=== PATIENT | female | born 1935 | race Caucasian/White ===

== ENCOUNTER 2018-11-27 11:14 | Inpatient (IN) | payer MEDICARE, OTHER ==
[~2018-11-27] VITALS: Ht 147.3 cm; Wt 44.5 kg
[~2018-11-27 11:14] MED LIST: ACET500 PO; ALBIPROI INH; AMLO5 PO; CEFU250; CEPH500 PO; CIPR250 PO; ESOM20 PO; FLUSAL2505 IH; HYDSUL200 PO; LEVFLO500 PO; LOSARTAN POTAS100 MG PO; MULVITA; OLME20 PO; OMEP20ER; PROACE100 PO; RXPROACE PO; Sudogest30 MG; TRIHYD253B; TRIHYD253B PO
[2018-11-27 11:54] LABS: Source, Urine Clean Catch
[2018-11-27 12:02] LABS: BASOPHILS ABSOLUTE AUTO 0.01 K/mm3 (0.00-0.23); BASOPHILS PERCENT AUTO 0 % (0-2); EOSINOPHILS ABSOLUTE AUTO 0.03 K/mm3 (0.00-0.68); EOSINOPHILS PERCENT AUTO 1 % (0-6); Hematocrit 20.9 % (33.0-51.0); Hemoglobin 6.8 g/dL (11.5-16.0); IMMATURE GRAN ABSOLUTE AUTO 0.03 K/mm3 (0.00-0.10); IMMATURE GRAN PERCENT AUTO 1 % (0-1); LYMPHOCYTES ABSOLUTE AUTO 0.45 K/mm3 (0.84-5.20); LYMPHOCYTES PERCENT AUTO 14 % (21-46); MONOCYTES ABSOLUTE AUTO 0.34 K/mm3 (0.16-1.47); MONOCYTES PERCENT AUTO 10 % (4-13); Mean Corpuscular HGB 30.6 pg (26.0-34.0); Mean Corpuscular HGB Conc 32.5 g/dL (31.5-36.5); Mean Corpuscular Volume 94 fL (80-100); Mean Platelet Volume 9.5 fL (9.1-12.4); NEUTROPHILS ABSOLUTE AUTO 2.41 K/mm3 (1.96-9.15); NEUTROPHILS PERCENT AUTO 74 % (41-73); Platelet Count 146 K/mm3 (150-400); RDW Coefficient Variation 13.8 % (11.7-14.2); RDW Standard Deviation 47.7 fL (35.1-46.3); Red Blood Cell Count 2.22 M/mm3 (3.80-5.20); White Blood Cell Count 3.27 K/mm3 (4.00-11.30)
[2018-11-27 12:03] LABS: Appearance, Urine Hazy (Clear); Bilirubin, Urine Neg (Neg); Blood, Urine 2+ (Neg); Color, Urine Yellow (P-Yellow); Glucose Qualitative, Urine Neg (Neg); Ketones, Urine Neg (Neg); Leukocyte Esterase, Urine 2+ (Neg); Nitrite, Urine Neg (Neg); Protein, Urine 3+ (Neg); Urobilinogen, Urine NORM (Normal)
[2018-11-27 12:32] LABS: Albumin, Blood 3.3 g/dL (3.4-5.0); Albumin/Globulin Ratio 1.1 (0.8-1.8); Bilirubin, Total 0.9 mg/dL (0.1-1.0); Bun/Creatinine Ratio 22.9 (12.0-20.0); Calcium, Blood 8.5 mg/dL (8.5-10.1); Creatinine, Blood 2.05 mg/dL (0.40-1.00); Globulin, Blood 2.9 g/dL (2.2-4.0); Potassium, Blood 4.3 mmol/L (3.5-5.5); Total Protein, Blood 6.2 g/dL (6.4-8.2)
[2018-11-27 13:40] LABS: Adenovirus F 40/41 Not Detected (NOT DETECT); Astrovirus Not Detected (NOT DETECT); Campylobacter Sp Not Detected (NOT DETECT); Cryptosporidium Not Detected (NOT DETECT); Cyclospora Cayetanensis Not Detected (NOT DETECT); E. Coli O157 Not Detected (NOT DETECT); Entamoeba Histolytica Not Detected (NOT DETECT); Enteroaggregative E. coli-EAEC Not Detected (NOT DETECT); Enteropathogenic E. coli-EPEC Not Detected (NOT DETECT); Enterotoxigenic E. coli-ETEC Not Detected (NOT DETECT); Giardia Lamblia Not Detected (NOT DETECT); Norovirus GI/GII Not Detected (NOT DETECT); Plesiomonas Shigelloides Not Detected (NOT DETECT); Rotavirus A Not Detected (NOT DETECT); Salmonella Sp Not Detected (NOT DETECT); Sapovirus Not Detected (NOT DETECT); Shiga Toxin-prod E. coli-STEC Not Detected (NOT DETECT); Shigella/Enteroin E. coli-EIEC Not Detected (NOT DETECT); Vibrio Cholerae Not Detected (NOT DETECT); Vibrio Sp Not Detected (NOT DETECT); Yersinia Enterocolitica Not Detected (NOT DETECT)
[2018-11-27] MEDS ORDERED: TRELEGY ELLIPT1 EACH PO (14:02)
[2018-11-27 14:03] LABS: Source, Urine Catheter
[2018-11-27] MEDS ORDERED: FURO20 PO (14:03)
[2018-11-27 14:09] LABS: Bilirubin, Urine Neg (Neg); Blood, Urine 2+ (Neg); Glucose Qualitative, Urine Neg (Neg); Ketones, Urine 1+ (Neg); Leukocyte Esterase, Urine 2+ (Neg); Nitrite, Urine Neg (Neg); Protein, Urine 3+ (Neg); Urobilinogen, Urine 2+ (Normal)
[2018-11-27 14:16] LABS: Appearance, Urine Cloudy (Clear); Color, Urine Yellow (P-Yellow)
[2018-11-27 14:19] LABS: Bacteria Many /hpf; Red Blood Cells, Urine 0-2 /hpf (0-2); Squamous Epithelial Cells Not Seen /hpf (Few); Transitional Epithelial Cells Mod /hpf (0-Rare)
[2018-11-27] MEDS ORDERED: CHOL10002 PO (16:16)
[2018-11-27] MEDS ORDERED: LOSA25 PO (16:16)
[2018-11-27] MEDS ORDERED: Micro-K8 MEQ PO (16:17)
[2018-11-27] MEDS ORDERED: TRELEGY ELLIPT1 EACH INH (16:19)
[2018-11-27] MEDS ORDERED: ALBU90OI INH (16:19)
[2018-11-27 17:11] LABS: IMMATURE RETIC FRACTION 4.4 % (2.3-16.0); RETIC HGB EQUIVALENT 33.8 pg (28.20-36.60); RETICULOCYTE COUNT PERCENT 2.27 % (0.50-2.50)
[2018-11-27 17:25] LABS: Percent Saturation 30.4 % (15.0-50.0)
--- NOTE | 2018-11-27 19:18 | NUR ---
SHIFT SUMMARY/ ADMIT NOTE REPORT RECIEVED FROM ER NURSE AT 1707. PT ARRIVED TO ROOM AT 1725 VIA BED. PT CLEANED UP AND ADMISSION COMPLETED WITH FAMILY PRESENT IN ROOM. BED IN LOW POSTION, CALL LIGHT WITHIN REACH, BED ALARM ON.
--- NOTE | 2018-11-28 01:00 | NUR ---
bLOOD TRANSFUSION. pT recieving one unit of blood this pm. Pt very anxious about getting blood. Explained how important getting some blood was and how safe the blood is. Blood was started around 2200. About 10 minutes after starting transfusion pt started c/o chest pressure. Md notified. Ekg taken and pt given tylenol and benadryl given per md order. EKG show sinus rhythm and no change from previous EKG. Pt has no s/s of transfusion reaction. Pt was able to recieve the rest of unit without problems.
--- NOTE | 2018-11-28 03:49 | NUR ---
Shift summary: Pt recieved one unit of blood after having much anxiety about it. See previous note. Pt restarted on normal saline. No more chest pressure reported. pt appears to be resting comfortably with no c/o discomfort. Pt on telemetry- NSR at 85 per finishing lab technician.
[2018-11-28 05:28] LABS: BASOPHILS ABSOLUTE AUTO 0.01 K/mm3 (0.00-0.23); BASOPHILS PERCENT AUTO 0 % (0-2); EOSINOPHILS ABSOLUTE AUTO 0.08 K/mm3 (0.00-0.68); EOSINOPHILS PERCENT AUTO 3 % (0-6); Hematocrit 24.2 % (33.0-51.0); Hemoglobin 7.9 g/dL (11.5-16.0); IMMATURE GRAN ABSOLUTE AUTO 0.02 K/mm3 (0.00-0.10); IMMATURE GRAN PERCENT AUTO 1 % (0-1); LYMPHOCYTES ABSOLUTE AUTO 0.47 K/mm3 (0.84-5.20); LYMPHOCYTES PERCENT AUTO 20 % (21-46); MONOCYTES ABSOLUTE AUTO 0.24 K/mm3 (0.16-1.47); MONOCYTES PERCENT AUTO 10 % (4-13); Mean Corpuscular HGB 29.9 pg (26.0-34.0); Mean Corpuscular HGB Conc 32.6 g/dL (31.5-36.5); Mean Corpuscular Volume 92 fL (80-100); Mean Platelet Volume 9.3 fL (9.1-12.4); NEUTROPHILS ABSOLUTE AUTO 1.58 K/mm3 (1.96-9.15); NEUTROPHILS PERCENT AUTO 66 % (41-73); Platelet Count 111 K/mm3 (150-400); RDW Coefficient Variation 14.6 % (11.7-14.2); RDW Standard Deviation 49.1 fL (35.1-46.3); Red Blood Cell Count 2.64 M/mm3 (3.80-5.20)
[2018-11-28 05:54] LABS: Albumin, Blood 2.7 g/dL (3.4-5.0); Albumin/Globulin Ratio 1.1 (0.8-1.8); Bilirubin, Total 1.3 mg/dL (0.1-1.0); Bun/Creatinine Ratio 25.8 (12.0-20.0); Calcium, Blood 7.7 mg/dL (8.5-10.1); Creatinine, Blood 1.51 mg/dL (0.40-1.00); Globulin, Blood 2.4 g/dL (2.2-4.0); Total Protein, Blood 5.1 g/dL (6.4-8.2)
--- NOTE | 2018-11-28 12:46 | NUR ---
CALLED DR KIM- PT HR IN THE 120-130 RANGE NO INCREASED SOB, RESP RATE 20 BPM. PT HOME MEDCATIONS HAVE NOT BEEN ORDERED AT THIS TIME. PT DOES NOT TAKE A BETA MARYJO PER HOME MED REC.
--- NOTE | 2018-11-28 15:23 | NUR ---
SPOKE TO DR SHAVER- PT HAS HAD HR IN THE 120'S WILL CTM NO NEW ORDERS AT THIS TIME.
--- NOTE | 2018-11-28 18:44 | NUR ---
SHIFT SUMMARY- PT HAS SHOWN AN INCREASE IN CONFUSION THIS EVENING, CALLED DR SHAVER HE IS AWARE OF THE PT INCREASE IN CONFUSION, POSSIBLE SUNDOWNERS. PT HAS FAMILY AT THE BEDSIDE. PT HAS BEEN USEING THE CALL LIGHT T/O THE SHIFT, HOWEVER THIS EVENING SHE KEEPS PRESSING THE ON BUTTON ON HER PHONE AND THINKS SHE IS PUSHING THE CALL LIGHT. IV JUST STARTED LEAKING AND A NEW ONE WAS STARTED BY CHRISTINE QUIJANO. PT HAS NS RUNNING AT 100ML/HR. PT C/O PAIN WHEN ROLLED AND REPOSITIONED; HOWEVER DOES NOT RATE THE PAIN MORE THAN A 1/10 WHEN ASKED. PT HAS A SMALL RED RENETTA ON HER RIGHT ELBOW THAT APPEARS TO BE A SMALL BRUISE, ATTEMPTED TO PLACE HEEL PROTECTORS, PT REFUSED STATING THEY ARE TOO TIGHT, PT SKIN TOO THIN FOR MEPILEX. CONCERNED FOR SKIN TEARS.
--- NOTE | 2018-11-28 22:00 | NUR ---
Pt showing increasing confusion. Urine very foul smelling. Labs show a possible uti and no treatment being given. MD notified and no further orders given.
[2018-11-29 05:22] LABS: BASOPHILS ABSOLUTE AUTO 0.02 K/mm3 (0.00-0.23); BASOPHILS PERCENT AUTO 1 % (0-2); EOSINOPHILS ABSOLUTE AUTO 0.09 K/mm3 (0.00-0.68); EOSINOPHILS PERCENT AUTO 3 % (0-6); Hematocrit 25.9 % (33.0-51.0); Hemoglobin 8.2 g/dL (11.5-16.0); IMMATURE GRAN ABSOLUTE AUTO 0.02 K/mm3 (0.00-0.10); IMMATURE GRAN PERCENT AUTO 1 % (0-1); LYMPHOCYTES ABSOLUTE AUTO 0.55 K/mm3 (0.84-5.20); LYMPHOCYTES PERCENT AUTO 21 % (21-46); MONOCYTES ABSOLUTE AUTO 0.31 K/mm3 (0.16-1.47); MONOCYTES PERCENT AUTO 12 % (4-13); Mean Corpuscular HGB Conc 31.7 g/dL (31.5-36.5); Mean Platelet Volume 9.2 fL (9.1-12.4); NEUTROPHILS ABSOLUTE AUTO 1.68 K/mm3 (1.96-9.15); NEUTROPHILS PERCENT AUTO 63 % (41-73); Platelet Count 106 K/mm3 (150-400); RDW Coefficient Variation 15.2 % (11.7-14.2); RDW Standard Deviation 52.2 fL (35.1-46.3); Red Blood Cell Count 2.73 M/mm3 (3.80-5.20); White Blood Cell Count 2.67 K/mm3 (4.00-11.30)
[2018-11-29 05:31] LABS: Mean Corpuscular Volume 95 fL (80-100)
[2018-11-29 05:38] LABS: Bun/Creatinine Ratio 23.3 (12.0-20.0); Calcium, Blood 7.9 mg/dL (8.5-10.1); Creatinine, Blood 1.33 mg/dL (0.40-1.00); Potassium, Blood 3.8 mmol/L (3.5-5.5)
--- NOTE | 2018-11-29 07:13 | NUR ---
ASSUMED CARE: PT RESTING QUIETLY. GROUP EXERCISE CLASS INSTRUCTOR AT BEDSIDE. NO ACUTE NEEDS OR CONCERNS AT THIS TIME.
--- NOTE | 2018-11-29 15:30 | NUR ---
PT'S DAUGHTER CAME OUT OF ROOM AND WANTED TO DISCUSS ORDERS FOR PAIN AND ANXIETY MEDICATION. INFORMED DAUGHTER THAT THESE MEDS WERE ORDERED PRN AND INSTRUCTED THEM TO LET STAFF KNOW WHEN THEY FELT PT NEEDED THE MEDICATIONS. FAMILY AT BEDSIDE. NO FURTHER NEEDS AT THIS TIME.
--- NOTE | 2018-11-29 18:01 | NUR ---
SHIFT SUMMARY: FAMILY AT BEDSIDE THROUGHOUT DAY. PT GETS ANXIOUS WITH ACTIVITY AND WISHES TO GO HOME. DR SHAVER TOLD FAMILY PT MAY BE ABLE TO DC IN NEXT FEW DAYS. NO FURTHER NEEDS OR CONCERNS AT THIS TIME.
--- NOTE | 2018-11-29 18:20 | NUR ---
Spiritual Care initial visit: Mrs. Wray appears quite frail, but tells me she is feeling better and expects to be discharged home soon. Dtr and sisiter were present in room and they appear loving and devoted to caring for pt. Prayer for healing provided at bedside. Pt denies concerns or fears. she was appreciative of prayer and spiritual encouragement. I will remain available.
[2018-11-30 04:52] LABS: BASOPHILS ABSOLUTE AUTO 0.03 K/mm3 (0.00-0.23); BASOPHILS PERCENT AUTO 1 % (0-2); EOSINOPHILS ABSOLUTE AUTO 0.02 K/mm3 (0.00-0.68); EOSINOPHILS PERCENT AUTO 1 % (0-6); Hematocrit 27.7 % (33.0-51.0); Hemoglobin 8.9 g/dL (11.5-16.0); IMMATURE GRAN ABSOLUTE AUTO 0.04 K/mm3 (0.00-0.10); IMMATURE GRAN PERCENT AUTO 1 % (0-1); LYMPHOCYTES ABSOLUTE AUTO 0.57 K/mm3 (0.84-5.20); LYMPHOCYTES PERCENT AUTO 17 % (21-46); MONOCYTES ABSOLUTE AUTO 0.37 K/mm3 (0.16-1.47); MONOCYTES PERCENT AUTO 11 % (4-13); Mean Corpuscular HGB 30.5 pg (26.0-34.0); Mean Corpuscular HGB Conc 32.1 g/dL (31.5-36.5); Mean Corpuscular Volume 95 fL (80-100); Mean Platelet Volume 9.1 fL (9.1-12.4); NEUTROPHILS ABSOLUTE AUTO 2.31 K/mm3 (1.96-9.15); NEUTROPHILS PERCENT AUTO 69 % (41-73); Platelet Count 106 K/mm3 (150-400); RDW Coefficient Variation 15.1 % (11.7-14.2); RDW Standard Deviation 52.2 fL (35.1-46.3); Red Blood Cell Count 2.92 M/mm3 (3.80-5.20); White Blood Cell Count 3.34 K/mm3 (4.00-11.30)
[2018-11-30 05:16] LABS: Bun/Creatinine Ratio 23.8 (12.0-20.0); Calcium, Blood 8.2 mg/dL (8.5-10.1); Creatinine, Blood 1.26 mg/dL (0.40-1.00); Phosphorus, Blood 3.1 mg/dL (2.5-4.9); Potassium, Blood 3.6 mmol/L (3.5-5.5)
[2018-11-30 06:20] LABS: Source, Urine Clean Catch
--- NOTE | 2018-11-30 06:21 | NUR ---
sHIFT SUMMARY: Pt heart rate up to 130 x 1 hour. BP 144/99. Pt sleeping. Nonsymptomatic. notified. Metropolol given 5 mg iv. Heart rate down to 80. also ordered a cath urine for a UA. Pt very anxious so ativan given before we cathed her. Urine very foul smelling and cloudty. Urine sent to lab. P:t cleaned up x 3 during the night. No bowel movement.
[2018-11-30 06:41] LABS: Appearance, Urine Hazy (Clear); Bilirubin, Urine Neg (Neg); Blood, Urine 1+ (Neg); Color, Urine Yellow (P-Yellow); Glucose Qualitative, Urine Neg (Neg); Ketones, Urine Neg (Neg); Leukocyte Esterase, Urine 1+ (Neg); Nitrite, Urine Neg (Neg); Protein, Urine 2+ (Neg); Specific Gravity, Urine 1.015 (1.003-1.022); Urobilinogen, Urine NORM (Normal)
[2018-11-30 06:59] LABS: Red Blood Cells, Urine 0-2 /hpf (0-2)
[2018-11-30 07:00] LABS: Amorphous Mod (0-Heavy); Bacteria Many /hpf; Squamous Epithelial Cells Rare /hpf (Few)
[2018-11-30] MEDS ORDERED: ONDA4ODT MM (11:25)
--- NOTE | 2018-11-30 11:45 | NUR ---
PATIENT D/C'D TO HOME WITH DAUGHTER. RX MEDICATIONS FAXED TO [facility] AND COPY PROVIDED. D/C INSTRUCTIONS AND EDUCATIONS DISCUSSED WITH PATIENT AND COPY PROVIDED. PATIENT AND DAUGHTER DENY ANY FURTHER QUESTIONS OR CONCERNS.
== END 2018-11-30 12:14 | disposition home or self-care (01) | DRG 682 ==
LOC: ER 11:14 → MEDS 15:52 → ENPENDDIS 11-30 11:22 → MEDS 11-30 12:14
PROVIDERS: Emergency Medicine; Hospitalist; Internal Medicine; ADMIT Hospitalist
DX: N17.9 Acute kidney failure, unspecified (principal); K85.90 Acute pancreatitis without necrosis or infection, unspecified; E87.1 Hypo-osmolality and hyponatremia; D61.818 Other pancytopenia; J44.9 Chronic obstructive pulmonary disease, unspecified; I10 Essential (primary) hypertension; K21.9 Gastro-esophageal reflux disease without esophagitis; L40.9 Psoriasis, unspecified; M06.9 Rheumatoid arthritis, unspecified; D69.6 Thrombocytopenia, unspecified; Z66 Do not resuscitate; E86.0 Dehydration; J30.2 Other seasonal allergic rhinitis; E83.51 Hypocalcemia; F10.20 Alcohol dependence, uncomplicated
CPT/HCPCS: 36415; 74176; 80048; 80053; 81001; 82330; 82728; 83540; 83550; 83690; 84100; 84443; 85025; 85045; 86301; 86850; 86870; 86900; 86901; 86902; 86905; 86922; 87086; 87507; 93005; 93010; 94640; 94760; 96360; 96361; 99285-25; J0610; J2060; J7030; J7050; J7120; P9016; P9612; Q0163